=== PATIENT | male | born 1985 ===

== ENCOUNTER 2019-01-22 00:29 | Emergency (ER) | payer SELFPAY ==
[2019-01-22 00:42] VITALS: BP 120/68
[2019-01-22] MEDS ORDERED: ZOFRAN ODT PO ONE (00:49)
[2019-01-22] MEDS ORDERED: ZOFRAN ODT ONE (00:49)
== END 2019-01-22 02:00 | disposition left against medical advice (07) ==
LOC: ED 00:29
DX: R42 Dizziness and giddiness (principal); Z53.21 Procedure and treatment not carried out due to patient leaving prior to being seen by health care provider
CPT/HCPCS: Q0162